=== PATIENT | female | born 1995 | race Caucasian/White ===

== ENCOUNTER 2023-01-24 10:30 | Emergency (ER) | payer MEDICAID ==
[~2023-01-24] VITALS: Ht 154.9 cm; Wt 59.0 kg
[2023-01-24 10:35] VITALS: BP 109/73
--- NOTE | 2023-01-24 10:49 | NUR ---
TRIAGE ASSESSMENT COMPLETED.
--- NOTE | 2023-01-24 10:55 | NUR ---
27 y/o F BIB self from home c/o generalized body rash x 2 days. Patient states rash began yesterday to torso and back, progressively worsened to abd, neck, face. Patient reports son diagnosed with chickenpox 1.5 weeks ago. Pt reports itchiness/tenderness; denies fever, nausea, vomiting, diarrhea, SOB, chest pain, abd pain. also reports associated body aches, chills, hot flashes, runny nose for last 2 days. Tylenol this morning with relief to symptoms. Bed locked in lowest position, side rails x 1. PMH/Sx/Meds: C-sections NKDA
--- NOTE | 2023-01-24 10:57 | NUR ---
Dr. Iniguez evaluating patient at bedside
[2023-01-24] MEDS ORDERED: HYDR-1095 PO (11:31)
[2023-01-24] MEDS ORDERED: ACYC200S1 PO (11:37)
--- NOTE | 2023-01-24 12:27 | NUR ---
Patient discharged with v/s stable. Written and verbal after care instructions given and explained. Patient alert, oriented and verbalized understanding of instructions. Ambulatory with steady gait. All questions addressed prior to discharge. ID band removed. Patient advised to follow up with PMD. Rx of Acyclovir, Hydroxyzine given. Patient educated on indication of medication including possible reaction and side effects. Opportunity to ask questions provided and answered.
== END 2023-01-24 12:27 | disposition home or self-care (01) ==
LOC: MED 10:30
DX: B01.9 Varicella without complication (principal); Z79.899 Other long term (current) drug therapy
CPT/HCPCS: 99283